=== PATIENT | male | born 1945 | race Caucasian/White ===

== ENCOUNTER → 2019-11-24 | Outpatient (CLI) | payer MEDICARE ==
[~2019-11-24] MED LIST: PANT40TA6 PO; SILO8CAP2 PO; TADA5TAB2 PO
== END | disposition home or self-care (01) ==
LOC: STAR 13:49
PROVIDERS: ATTEND Anesthesiology
DX: Z01.812 Encounter for preprocedural laboratory examination (principal); Z20.828 Contact with and (suspected) exposure to other viral communicable diseases; N40.1 Benign prostatic hyperplasia with lower urinary tract symptoms
CPT/HCPCS: 36415; 87635

== ENCOUNTER 2019-11-30 10:25 | Day surgery (SDC) | payer MEDICARE ==
[~2019-11-30] VITALS: Ht 188 cm; Wt 82.5 kg
[2019-11-30] MEDS ORDERED: FENTANYL PF 100 MCG/2ML ONE (10:47)
[2019-11-30] MEDS ORDERED: GLYCOPYRROLATE 0.2MG/1ML, 5ML ONE (10:47)
[2019-11-30] MEDS ORDERED: LIDOCAINE-MPF 2% ,5ML ONE (10:47)
[2019-11-30] MEDS ORDERED: PROPOFOL 10 MG/ML, 20ML ONE (10:47)
[2019-11-30] MEDS ORDERED: ROCURONIUM 10MG/ML,5ML ONE (10:47)
[2019-11-30] MEDS ORDERED: DEXAMETHASONE 4 MG/ML, 1ML ONE (10:47)
[2019-11-30] MEDS ORDERED: MIDAZOLAM 1 MG/ML, 2ML ONE (10:47)
[2019-11-30] MEDS ORDERED: LACTATED RINGERS 1,000 ML IV SCH (11:08)
[2019-11-30] MEDS ORDERED: MULT-717 PO (11:12)
[2019-11-30] MEDS ORDERED: VIT D3 PO (11:12)
[2019-11-30] MEDS ORDERED: FINA5TAB4 PO (11:12)
[2019-11-30] MEDS ORDERED: TAMS-11 PO (11:12)
[2019-11-30 11:30] VITALS: BP 143/79
[2019-11-30] MEDS ORDERED: LIDOCAINE-MPF 1%, 2ML INFIL ONE (11:30)
[2019-11-30] MEDS ORDERED: CHLORHEXIDINE 15 ML UDC MM ONE (11:30)
[2019-11-30] MEDS ORDERED: METHOCARBAMOL 1,000 MG in DEXTROSE 5% 100 ML IV PRN (12:00)
[2019-11-30] MEDS ORDERED: DIPHENHYDRAMINE 50 MG/ML, 1ML IVPush PRN (12:00)
[2019-11-30] MEDS ORDERED: MEPERIDINE/PF 25MG/0.5ML IVPush PRN (12:00)
[2019-11-30] MEDS ORDERED: MIDAZOLAM 1 MG/ML, 2ML IV PRN (12:00)
[2019-11-30] MEDS ORDERED: EPHEDRINE 50 MG/ML, 1ML IVPush PRN (12:00)
[2019-11-30] MEDS ORDERED: FENTANYL PF 100 MCG/2ML IV PRN (12:00)
[2019-11-30] MEDS ORDERED: ALBUTEROL/IPRATROPIUM 2.5MG/0.5MG, 3 ML NPPB PRN (12:00)
[2019-11-30] MEDS ORDERED: HYDROcodone/APAP 7.5-325MG/15ML UDC PO PRN (12:00)
[2019-11-30] MEDS ORDERED: DIAZEPAM 5 MG/ML, 2ML IVPush PRN (12:00)
[2019-11-30] MEDS ORDERED: EPHEDRINE 50 MG/ML, 1ML IM PRN (12:00)
[2019-11-30] MEDS ORDERED: LABETALOL 5MG/ML, 20ML IV PRN (12:00)
[2019-11-30] MEDS ORDERED: hydrALAzine 20 MG/ML, 1ML IV PRN (12:00)
[2019-11-30] MEDS ORDERED: HYDROmorphone 1 MG/ML, 1ML INJ IVPush PRN (12:00)
[2019-11-30] MEDS ORDERED: ONDANSETRON 2MG/ML, 2ML IVPush PRN ×2 (12:00→13:30)
[2019-11-30] MEDS ORDERED: OXYcodone 5 MG/5 ML ORAL.SOL UDC PO PRN (12:00)
[2019-11-30] MEDS ORDERED: HALOPERIDOL 5 MG/ML IV PRN (12:00)
[2019-11-30] MEDS ORDERED: KETOROLAC 30 MG/1 ML IV PRN (12:00)
[2019-11-30] MEDS ORDERED: METOCLOPRAMIDE 5 MG/ML, 2ML IVPush PRN (12:00)
[2019-11-30] MEDS ORDERED: ACETAMINOPHEN 325 MG TABLET PO PRN (12:00)
[2019-11-30] MEDS ORDERED: LORazepam 2 MG/ML, 1ML IVPush PRN (12:00)
[2019-11-30] MEDS ORDERED: CEFAZOLIN 1,000 MG ONE (12:18)
[2019-11-30] MEDS ORDERED: OPIUM/BELLADONNA SUPP.RECT 16.2-30 MG PR PRN (13:30)
[2019-11-30] MEDS ORDERED: HYDROcodone/APAP 5/325 TABLET PO PRN (13:30)
[2019-11-30] MEDS ORDERED: ONDANSETRON 2MG/ML, 2ML ONE (13:42)
[2019-11-30] MEDS ORDERED: KETOROLAC 30 MG/1 ML ONE (13:42)
[2019-11-30] MEDS ORDERED: METOCLOPRAMIDE 5 MG/ML, 2ML ONE (13:59)
[2019-11-30] MEDS ORDERED: VITAMIN D MC SCH (15:00)
[2019-11-30] MEDS: D5%-LACTATED RINGERS 1,000 ML IV SCH (15:21)
[2019-11-30 19:37] VITALS: BP 132/79
[2019-11-30] MEDS: CIPROFLOXACIN 500 MG TABLET PO SCH (20:43)
[2019-11-30] MEDS ORDERED: TEMAZEPAM 30 MG CAPSULE PO PRN (21:00)
[2019-11-30 23:36] VITALS: BP 112/67
[2019-12-01] MEDS: D5%-LACTATED RINGERS 1,000 ML IV SCH (00:34)
[2019-12-01 03:52] VITALS: BP 112/67
[2019-12-01 06:30] VITALS: BP 120/70
[2019-12-01] MEDS ORDERED: CALCIUM CARBONATE 500 MG TAB.CHEW PO PRN (07:00)
[2019-12-01] MEDS: CIPROFLOXACIN 500 MG TABLET PO SCH (08:40)
[2019-12-01] MEDS ORDERED: CHOLECALCIFEROL 1,000 UNIT TABLET PO SCH (09:00)
[2019-12-01] MEDS ORDERED: MULTIVITAMINS/MINERALS TABLET PO SCH (09:00)
[2019-12-01] MEDS ORDERED: PANTOPRAZOLE 40MG TABLET PO SCH (09:00)
== END 2019-12-01 12:25 | disposition home or self-care (01) ==
LOC: OUT 10:25 → ORIP 13:22 → UNDOADMIN 13:22 → 4NE 14:34 → OUT 15:00 → 4NE 15:06 → ORIP 15:06 → OUT 12-01 12:25 → UNDODISIN 12-01 12:25
PROVIDERS: ATTEND Urology
DX: N40.1 Benign prostatic hyperplasia with lower urinary tract symptoms (principal); N13.8 Other obstructive and reflux uropathy; Z20.828 Contact with and (suspected) exposure to other viral communicable diseases; R33.8 Other retention of urine; N35.911 Unspecified urethral stricture, male, meatal; N52.9 Male erectile dysfunction, unspecified; N20.0 Calculus of kidney; R31.21 Asymptomatic microscopic hematuria; K21.9 Gastro-esophageal reflux disease without esophagitis; Z79.899 Other long term (current) drug therapy; Z87.891 Personal history of nicotine dependence; Z82.49 Family history of ischemic heart disease and other diseases of the circulatory system; Z80.3 Family history of malignant neoplasm of breast
CPT/HCPCS: 52601; 87635; 88305; J0690; J1100; J1885; J2250; J2405; J2704; J2765; J3010; J7120; J7121; G0378